=== PATIENT | female | born 1965 | race Caucasian/White ===

== ENCOUNTER 2021-12-28 16:43 | Outpatient (REF) | payer MEDICAID, SELFPAY | END 2021-12-28 16:44 | disposition home or self-care (01) | LOC: LBN 16:43 | PROVIDERS: PCP Internal Medicine; Visit Provider Nurse Practitioner Family | DX: N39.0 Urinary tract infection, site not specified (principal) | CPT/HCPCS: 87077; 87086; 87186 ==

== ENCOUNTER 2023-02-12 03:30 | Emergency (ER) | payer BC, SELFPAY ==
[2023-02-12 03:30] VITALS: BP 196/89; PULSE 76; RESP 12; TEMP 36.8; O2SAT 97
--- NOTE | 2023-02-12 03:45 | DI.RAD_ITS ---
Exam(s) XR LUMBAR SPINE COMPLETE EXAM: XR LUMBAR SPINE COMPLETE CLINICAL HISTORY: rule out compression fracture. TECHNIQUE: 2D digital imaging was performed of the lumbar spine. Six images were obtained. AP, lat eral, right oblique, left oblique and L5-S1 spot views were obtained. COMPARISON: No exams were available for comparison FINDINGS: BONES: There is a compression deformity of the L1 vertebral body with loss of approximately 25 percen t of the height of the vertebral body. The acuity is indeterminate. Vertebral bodies are unremarkab le. Mild degenerative changes of the facets are seen in the lower lumbar spine. There is a transitio nal lumbosacral vertebral body. DISKS: There is disc space narrowing at T12-L1 and L1-L2. ALIGNMENT: Lumbar spinal alignment is within normal limits. No spondylolysis or spondylolisthesis. SOFT TISSUE: Normal. IMPRESSION: Compression fracture deformity of L1. This is of indeterminate acuity. Please correlate clinically. If there is continued clinical concern, an MRI may be obtained for further evaluation. DATA REPOSITORY: RADIATION DOSE DELIVERED:
--- NOTE | 2023-02-12 03:47 | ED.GENADUL_ITS ---
Discharge Plan Disposition Patient Disposition: Home Condition: Improving Discharge Details Clinical Impression: Closed compression fracture of L1 vertebra, Bilateral sensorineural hearing loss Primary Care Provider: Griselda Alba ED Provider: Lore Vu Home Meds and New Rx's Prescriptions: New oxycodone 5 mg capsule 5 mg PO Q4H PRN (Reason: Pain not relieved by nltz-[id number] medications) Qty: 14 0RF Rx Instructions: Do not drink alcohol, drive, operate heavy machinery or make important decisions while taking this medication. This medication can be habit-forming and can cause constipation. lidocaine 5 % adhesive patch,medicated See Rx Instructions .ROUTE .COMPLEX Qty: 30 0RF Rx Instructions: leave on most painful area for up to 12 hrs Discharge Instructions Instructions: Vertebral Compression Fracture (ED) Additional Instructions: 1. Return to the emergency department for any problems controlling your bowels or bladder or numbness or tingling in the genital area or for any new or worrisome symptoms such as intractable pain. 2. You should be contacted by the pain clinic and by the spine clinic at [facility] for follow-up. 3. Take yvol-zvw-qibbxyy medications as needed for pain. You may also fill the prescription for the lidocaine patches to use every 12 hours. You may also take the oxycodone for severe pain not relieved by the other analgesics. You should not drink alcohol, drive, make important decisions or operate heavy machinery while taking oxycodone. This medication can be habit-forming and can cause drowsiness and constipation. 4. Call your primary care provider for a follow-up appointment and to update them on today's visit. Discharge Data Discharge Date/Time-TO BE ENTERED AT DEPARTURE: 02/12/23 08:04 Discharge Physician: Lore Vu Medical Decision Making This is a 58-year-old female who presents with acute low back pain after attempting to lift her partner who fell on the floor. She has severe back pain and was unable to drive herself in. She denies any saddle anesthesia, bowel or bladder incontinence or retention, numbness tingling or weakness in her legs. Her exam is reassuring but given her age will obtain a urinalysis and plain films to rule out compression fracture. We will provide IV analgesia and likely discharge her home if her work-up is unremarkable. We will check a urinalysis and rule out nephrolithiasis or UTI. Differential Diagnosis Differential Diagnosis: Musculoskeletal back pain, radiculopathy, vertebral compression fracture, Medical Records Medical records reviewed: Yes I reviewed the patient's medical records. Imaging Data Radiologic Study: Imaging: X-Ray (LS spine) Radiologist's impression: Apparent compression deformity of the L1 vertebral body. This may represent a compression fracture. The chronicity of this fracture is indeterminate. Correlate with physical exam and patient's site of pain as well as any other prior imaging if available. HPI General Date/Time Provider Initiated Documentation: 02/12/23 03:47 . Limitations to Documentation: no limitations . Information obtained by: patient, EMS, RN notes reviewed and old records reviewed . HPI Narrative: Time seen was 3:47 AM in bed 3. 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 Just prior to arrival she was attempting to lift her significant other back into bed after he fell and when she did so she felt acute pain and a popping sensation in the lower back. The pain is severe constant and aggravated by movement. She denies any radiation down her legs. She denies any saddle anesthesia, or numbness and or tingling or weakness down her legs.. She denies any bowel or bladder incontinence or retention. She denies any previous similar episodes. She denies any abdominal pain fever dysuria frequency or urgency. She denies any fevers chills chest pain or shortness of breath. She was in too much pain to drive herself then and was brought in by EMS. The patient has been told she does have osteoporosis. She has had ORIF of the right ankle as well as surgery on the left foot. These were both fairly distant surgeries. She tells me she did have morphine perioperatively without any adverse reactions. Related Data Home Medications Medication Instructions Recorded Confirmed lidocaine 5 % topical patch See Rx Instructions topical 02/12/23 .COMPLEX #30 ea oxycodone 5 mg capsule 5 mg PO Q4H PRN Pain not relieved 02/12/23 by [id number] medications #14 caps Previous Rx's Medication Instructions Recorded lidocaine 5 % topical patch See Rx Instructions topical 02/12/23 .COMPLEX #30 ea oxycodone 5 mg capsule 5 mg PO Q4H PRN Pain not relieved 02/12/23 by lovu-xjo-qoslwao medications #14 caps Allergies Allergy/AdvReac Type Severity Reaction Status Date / Time nka Allergy Uncoded 02/12/23 06:37 General Stated Complaint: Nk/Back Pain BRAYAN: 3 Review of Systems Narrative: see hpi PFSH All Active Problems (Updated 02/12/23 @ 07:34 by Lore Vu MD) Closed compression fracture of L1 vertebra (Acute) Bilateral sensorineural hearing loss (Acute) Surgical History History of surgical removal of ganglion cyst History of ankle surgery Social History Smoking/Tobacco Use Status: Former Tobacco Use Smoking risk assessment performed?: Yes Alcohol Intake: current Alcohol Intake frequency: holidays/special occasions only Drug use: Never Household members: significant other current occupation: caregiver Pets and animals: Yes Pets and animals: cat(s) Do you feel safe at home: Yes Do you feel safe in your relationship?: Yes Exam Narrative Exam Narrative: The patient is a well-developed well-nourished female lying in the bed. She appears mildly uncomfortable. Her blood pressure is 196/89. She was not tachycardic tachypneic or febrile. She had a normal room air O2 sat of 97%. Her GCS is 15. She did appear uncomfortable with movement. Const General: cooperative, healthy appearing, comfortable, no acute distress, well developed, well groomed and well hydrated Nutritional Appearance: average body habitus and well nourished Orientation: alert, awake and oriented x3 HENMT Head: normal to inspection, normocephalic and atraumatic Ears: hearing grossly normal bilaterally (The patient is wearing bilateral hearing aids) and other (Her external ears appear normal other than her hearing aids are in place.) General nose exam: external nose normal, nares normal and no nasal discharge Face and sinus: normal facial exam, sinuses nontender and face symmetric Mouth: oral mucosae normal, lip normal, tongue normal, oropharynx normal, moist mucous membranes and other (Normal phonation. The patient is handling secretions.) Teeth and gingiva: dentition normal Throat: posterior oropharynx normal and uvula midline Eyes General: appearance normal, both eyes and all related structures Eyelids: eyelids normal Conjunctivae: conjunctivae normal Sclera: sclerae normal Cornea: corneas normal Pupils: PERRL EOM: EOM intact bilaterally and No nystagmus Neck Neck: normal visual inspection, full ROM, no lymphadenopathy, no meningeal signs, trachea midline and supple Lymphatic: no lymphadenopathy noted Chest Chest: normal inspection of the chest Resp Effort & Inspection: normal respiratory effort, able to speak in complete sentences, no audible wheezes, no nasal flaring, no respiratory distress, no retractions, no stridor, not tachypneic, no tracheal deviation, no use of accessory muscles, No prolonged expiratory phase and other (Normal inspiratory to expiratory ratio.) Auscultation: clear to auscultation bilaterally, no rales, no rhonchi, no wheezes and no rubs Tactile Fremitus: tactile fremitus absent Cardio Jugular venous pressure: no JVD Palpation: normal PMI Rate: regular rate Rhythm: regular rhythm Heart Sounds: S1 normal, S2 normal, no gallops, no murmurs and no rubs GI Inspection: normal to inspection and non-distended Palpation: soft, no hepatosplenomegaly, no guarding and nontender Percussion: normal to percussion Auscultation: normal bowel sounds General: No CVA tenderness Back/Spine/Pelvis Back: no CVA tenderness Cervical Spine: normal cervical lordosis, cervical ROM normal, No cervical muscular tenderness, No pain with cervical ROM, No cervical spinal tenderness and No step off deformity Thoracic/Lumbar Spine: thoracic and lumbar spine normal to inspection, straight leg raise negative bilaterally, pain with thoraco-lumbar ROM, thoraco-lumbar ROM limited (The patient's movements are slow and limited by pain), thoraco-lumbar spasm, thoracic spinal tenderness, No lumbar spinal tenderness, No straight leg raise positive and other (There is mild paraspinous muscle spasm & tenderness over the lumbar spine) Other: No step-off or crepitus of the thoracolumbar spine. No swelling warmth or ecchymoses Skin General skin exam: no rashes or lesions noted, turgor normal, no petechiae, no purpura and other (Skin is normal for ethnicity.) Lesions: no lesions Rashes: no rashes Trauma: no lacerations or abrasions Neuro General: patient alert, patient awake, patient oriented x3, moves all extremities, no meningeal signs, no focal motor deficits and CN's II-XI intact bilaterally Cranial Nerves: CN's II-XI intact bilaterally, PERRL, accommodation normal, EOM intact bilaterally, no nystagmus, facial strength normal, tongue midline, hearing normal (With hearing aids) and no nystagmus Cognition: normal cognition Speech: speech normal Motor: muscle tone normal throughout and strength 5/5 throughout Sensory Exam: no sensory deficits noted DTR's: Rt Patellar: 2+, Lt Patellar: 2+, Rt Ankle: 1+ and Lt Ankle: 1+ Plantar Reflexes: Downgoing: bilateral Other: No numbness or tingling of the buttocks. Extrem General: full ROM, capillary refill normal, no clubbing, cyanosis or edema and no calf tenderness Other: There is a well-healed surgical scar over the right ankle. There are no embolic lesions. No sensory deficits. Motor function is 5 out of 5 in both lower extremities. Psych Appearance: grossly normal Affect: normal affect Attitude: cooperative Thought Process: normal Thought Content: normal Insight: insight good Judgment: judgment good Other: The patient appears to have capacity make medical decisions. Course Reevaluation(s) Time: 06:38 Reevaluation: I have updated the patient on the L1 compression fracture. I have advised her to avoid heavy lifting and that we would be referring her to the spine clinic at [facility] and to pain management here. I will write for 2 mg of morphine which she has taken in the past and we will make sure she can ambulate before calling for her ride. I will discharge her with oxycodone tablets and lidocaine patches. 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 Time: 07:30 Reevaluation #2: The patient is able to ambulate unassisted. I have advised her that she will be contacted by the spine clinic at [facility] and the pain clinic here. I have advised her to return for intractable pain, bowel or bladder incontinence or retention, saddle anesthesia or any new or worrisome symptoms. I have advised her I would discharge her with oxycodone. She is aware this can be habit- forming and she should not drive, drink alcohol, operate heavy machinery or make important decisions while taking this medication. She is also aware it can cause constipation. The patient voiced understanding agree with the discharge plan. All her questions and concerns were addressed prior to discharge Vital Signs Vital signs: Vital Signs Temperature 36.8 C 02/12/23 03:30 Pulse 76 02/12/23 03:30 Respiratory Rate 12 02/12/23 03:30 Blood Pressure 196/89 H 02/12/23 03:30 Pulse Oximetry 97 02/12/23 03:30 Temperature 36.8 C 02/12/23 03:30 Pulse 76 02/12/23 03:30 Respiratory Rate 12 02/12/23 03:30 Respiratory Effort Normal 02/12/23 03:34 Blood Pressure 196/89 H 02/12/23 03:30 Blood Pressure Position Sitting 02/12/23 03:30 Pulse Oximetry 97 02/12/23 03:30 Oxygen Delivery Method Room Air 02/12/23 03:30 Oxygen Flow Rate 0 02/12/23 03:30 Pain Level 8 02/12/23 03:34 Lab/Test Results Lab/Test Results: Urine was positive for trace leukocyte Estrace. I notified the patient who tells me she has had urinary tract infections in the past and denies any similar symptoms currently. I have informed her that a culture is pending and would be resulted in 48 hours. I notified her that she could access this through the patient portal or by asking her primary care provider for the results.
[2023-02-12] MEDS: Ketorolac 15 MG/ML VIAL IVP (04:05)
[2023-02-12] MEDS: ACETAMINOPHEN 1,000 MG/100 ML BTL 400 MG IVPB (04:10)
[2023-02-12 04:53] LABS: Bilirubin Negative (Negative); Blood Negative (Negative); Clarity Clear (Clear); Glucose Negative (Negative); Ketones Negative (Negative); Leukocyte Esterase Trace (Negative); Nitrite Negative (Negative); Specific Gravity 1.025 (1.005-1.025); Urobilinogen 0.2 mg/dL (Up to 0.2)
[2023-02-12 05:05] LABS: Bacteria Rare HPF (Negative); C & S Indicated? Yes; Casts Negative LPF (Negative); Crystals Negative HPF (Negative); Epithelial Cells Rare HPF (Negative); Mucus Negative (Negative); RBC Negative HPF (0-2)
--- NOTE | 2023-02-12 05:58 | DI.VRAD_ITS ---
PROCEDURE INFORMATION: Exam: XR Lumbosacral Spine Exam date and time: 02/12/2023 4:26 AM Age: 58 years old Clinical indication: Pain and injury or trauma; Other: Trying to lift heavy; Sprain or strain, lumbar ligaments; Low back pain; Injury date: 02/12/23; Injury details: PT sts tried to lift off floor. Back pain TECHNIQUE: Imaging protocol: Radiologic exam of the lumbosacral spine. Views: 4 or 5 views. COMPARISON: No relevant prior studies available. FINDINGS: Bones/joints: There appears to be an anterior compression deformity of the L1 vertebral body. This is not well profiled on this examination however there is an estimated 25% height loss of the anterior vertebral body. No definite retropulsion of fragments is seen on this exam. Scattered degenerative changes noted throughout the remainder of the lumbar spine. Soft tissues: Unremarkable. IMPRESSION: Apparent compression deformity of the L1 vertebral body. This may represent a compression fracture. The chronicity of this fracture is indeterminate. Correlate with physical exam and patient's site of pain as well as any other prior imaging if available. Dictated and Authenticated by: Kimo Quan MD. Ordering:PRESTON Torrez MD
--- NOTE | 2023-02-12 06:30 | NUR.NOTE ---
Referral to Care Management to refer patient [place] [facility] for compression deformity L1.Nursing Note:
--- NOTE | 2023-02-12 07:37 | NUR.NOTE ---
Referrals [facility] to [facility] to be seen within 2 weeks for Fracture of L1 Compression
== END 2023-02-12 08:04 | disposition home or self-care (01) ==
PROVIDERS: Emergency Provider Emergency Medicine Emergency Medical Services; PCP Nurse Practitioner
DX: S32.010A Wedge compression fracture of first lumbar vertebra, initial encounter for closed fracture (principal); X50.0XXA Overexertion from strenuous movement or load, initial encounter; Y93.89 Activity, other specified; Y92.018 Other place in single-family (private) house as the place of occurrence of the external cause
CPT/HCPCS: 96374; 96375; 99283; 72110; 81003; 81015; 87086; J0131; J1885

== ENCOUNTER → 2023-08-03 02:02 | Outpatient (CLI) | payer BC, SELFPAY ==
--- NOTE | 2023-08-03 | DI.MAMMO_ITS ---
Exam(s) MAMMO SCREENING EXAM: MAMMO SCREENING CLINICAL HISTORY: Z12.31 Screening mammogram for breast cancer TECHNIQUE: Bilateral full field digital CC and MLO mammographic images were obtained with 3D tomosyn thesis and utilizing computer aided detection (CAD). COMPARISON: Available for comparison. FINDINGS: Masses/Architectural Distortion: There is increased prominence of an area of asymmetric density in th e lower inner quadrant of the right breast. Microcalcifications: No suspicious pleomorphic-type are seen. Skin Thickening/Nipple Retraction: None. IMPRESSION: 1. Increased prominence of an area of asymmetric density in the lower inner quadrant of the right gaby ast. 2. This area should be further evaluated with a spot compression view. Right breast ultrasound may b e indicated at that time. BI-RADS Category 0 - Assessment Incomplete: Need additional imaging evaluation Breast Density - Category C - Heterogeneously dense Breast density category C or D implies that the patient has dense breast tissue. Dense breast tissue is very common and is not abnormal but dense breast tissue can make it harder to find cancer on a ma mmogram. Also, dense breast tissue may increase their breast cancer risk. This information about the result of the mammogram report was provided to the patient to raise their awareness. Use this report when you speak with the patient about their risks for breast cancer, which includes their family hist ory. At that time, you may recommend for more screening tests (Ultrasound or MRI) as they might be us eful based on their risk. A negative radiographic report should not delay biopsy if a dominant or clinically suspicious mass is present. Up to ten percent of cancers are not identified on mammography. A negative report may reinforce clinical impression. Adenosis and dense breasts may obscure an underlying neoplasm. False positive reports average 6 to 10%. Patient will receive a letter notifying them of these results.
== END ==
PROVIDERS: PCP Nurse Practitioner; Visit Provider Nurse Practitioner
DX: Z12.31 Encounter for screening mammogram for malignant neoplasm of breast (principal)
CPT/HCPCS: 77063; 77067

== ENCOUNTER 2025-03-27 13:59 | Outpatient (REF) | payer BC, SELFPAY ==
[2025-03-27 15:53] LABS: RBC 0-2 HPF (0-2)
== END 2025-03-27 14:00 | disposition home or self-care (01) ==
LOC: LBN 13:59
PROVIDERS: PCP Nurse Practitioner; Visit Provider Physician Assistant Medical
DX: R30.0 Dysuria (principal)
CPT/HCPCS: 87077; 81015; 87086; 87186